=== PATIENT | male | born 1965 | race African-American/Black ===

== ENCOUNTER 2017-10-08 08:15 | Emergency (ER) | payer MEDICAID ==
[~2017-10-08] VITALS: Ht 162.6 cm; Wt 89.4 kg
[2017-10-08 08:17] VITALS: BP 151/81
== END 2017-10-08 09:09 | disposition home or self-care (01) ==
LOC: ER 08:50
DX: G51.0 Bell's palsy (principal)
CPT/HCPCS: 93005; 99283

== ENCOUNTER 2020-11-02 06:51 | Emergency (ER) | payer MEDICAID ==
[~2020-11-02] VITALS: Ht 167.6 cm; Wt 91.0 kg
[2020-11-02 08:34] LABS: BASOPHILS % 0.8 % (0.0-2.0); EOSINOPHILS % 4.5 % (0.0-5.0); HEMATOCRIT. 39.8 % (42.0-52.0); HEMOGLOBIN. 13.4 g/dL (14.0-18.0); LYMPHOCYTES % 16.4 % (20.0-50.0); MEAN CORPUSCULAR HEMOGLOBIN 29.6 pg (28.0-32.0); MEAN CORPUSCULAR VOLUME 87.8 fL (80.0-94.0); MEAN PLATELET VOLUME 8.3 fl (7.4-10.4); NEUTROPHILS % 66.3 % (40.0-76.0); PLATELET 198 x1000/uL (130-400); RED BLOOD CELL COUNT 4.54 mill/uL (4.7-6.1); RED CELL DISTRIBUTION WIDTH 12.8 % (11.6-14.6)
[2020-11-02 08:37] LABS: CHLORIDE 109 mEq/L (98-107)
[2020-11-02 09:07] LABS: BG BASE EXCESS 1.4 mmol/L (-2.0-2.0); BG CARBOXYHEMOGLOBIN 0.3 % (0.5-1.5); BG DEOXYHEMOGLOBIN 5.9 % (0.0-5.0); BG FRACTION INSPIRED OXYGEN 21; BG HCO3 ACT 26.3 mmol/L (22.0-26.0); BG METHEMOGLOBIN 0.3 % (0.0-1.5); BG OXYGEN SATURATION 94.1 % (92.0-98.5); BG OXYHEMOGLOBIN 93.5 % (94.0-97.0); BG PCO2 42.4 mmHg (35.0-45.0); BG PO2 70.6 mmHg (75.0-100.0); BG SAMPLE SITE RIGHT RADIAL; BG VENT MODE ROOM AIR
[2020-11-02 11:00] VITALS: BP 125/82
== END 2020-11-02 11:11 | disposition home or self-care (01) ==
LOC: ER 06:51
DX: R05 Cough (principal); R06.02 Shortness of breath; Z20.822 Contact with and (suspected) exposure to COVID-19; R07.89 Other chest pain
CPT/HCPCS: 36415; 36600; 71045; 80053; 82375; 82805; 85025; 93005; 99285; C9803; U0003; U0005

== ENCOUNTER 2021-12-31 19:44 | Emergency (ER) | payer MEDICAID, OTHER ==
[~2021-12-31] VITALS: Ht 172.7 cm; Wt 91.0 kg
[2021-12-31 23:53] VITALS: BP 163/91
[2022-01-01 00:15] LABS: BASOPHILS % 1.4 % (0.0-2.0); EOSINOPHILS % 5.9 % (0.0-5.0); HEMOGLOBIN. 13.5 g/dL (14.0-18.0); MEAN CORPUSCULAR HEMOGLOBIN 30.9 pg (28.0-32.0); MEAN CORPUSCULAR VOLUME 86.7 fL (80.0-94.0); MEAN PLATELET VOLUME 8.6 fl (7.4-10.4); NEUTROPHILS % 52.7 % (40.0-76.0); PLATELET 179 x1000/uL (130-400); RED BLOOD CELL COUNT 4.38 mill/uL (4.7-6.1); RED CELL DISTRIBUTION WIDTH 12.7 % (11.6-14.6)
[2022-01-01 00:21] LABS: CHLORIDE 105 mEq/L (98-107)
== END 2022-01-01 01:04 | disposition home or self-care (01) ==
LOC: ER 19:44
DX: R03.0 Elevated blood-pressure reading, without diagnosis of hypertension (principal); I44.4 Left anterior fascicular block; Z85.9 Personal history of malignant neoplasm, unspecified
CPT/HCPCS: 36415; 80048; 85025; 93005; 99284

== ENCOUNTER 2023-04-04 16:45 | Emergency (ER) | payer OTHER ==
[~2023-04-04] VITALS: Ht 167.6 cm; Wt 91.0 kg
[~2023-04-04 16:45] MED LIST: ACET-2708 MT; ERYT1OIN6 RIGHTEYE
[2023-04-04 16:58] VITALS: TEMP 98; O2SAT 99
[2023-04-04 18:00] VITALS: BP 127/82; PULSE 96; RESP 18
[2023-04-04] MEDS ORDERED: IBUPROFEN 600MG TABLET PO ONE (18:00)
[2023-04-04] MEDS ORDERED: IBUP-2029 MT (18:30)
== END 2023-04-04 18:53 | disposition home or self-care (01) ==
LOC: ER 16:45
DX: S50.02XA Contusion of left elbow, initial encounter (principal); Z98.890 Other specified postprocedural states; Z85.9 Personal history of malignant neoplasm, unspecified; X58.XXXA Exposure to other specified factors, initial encounter; Y93.89 Activity, other specified; Y92.89 Other specified places as the place of occurrence of the external cause; Y99.8 Other external cause status
CPT/HCPCS: 73080; 99283; A4565

== ENCOUNTER 2023-04-27 11:54 | Emergency (ER) | payer OTHER ==
[~2023-04-27] VITALS: Ht 162.6 cm; Wt 91.0 kg
[~2023-04-27 11:54] MED LIST changes: +IBUP-2029 MT
[2023-04-27 12:00] VITALS: TEMP 97.9; O2SAT 98
[2023-04-27 12:40] LABS: BASOPHILS % 0.8 % (0.0-2.0); EOSINOPHILS % 5.4 % (0.0-5.0); HEMATOCRIT. 40.3 % (42.0-52.0); HEMOGLOBIN. 13.5 g/dL (14.0-18.0); LYMPHOCYTES % 28.7 % (20.0-50.0); MEAN CORPUSCULAR HEMOGLOBIN 29.8 pg (28.0-32.0); MEAN CORPUSCULAR HGB CONC 33.6 g/dL (31.0-37.0); MEAN CORPUSCULAR VOLUME 88.8 fL (80.0-94.0); MEAN PLATELET VOLUME 8.9 fl (7.4-10.4); MONOCYTES % 9.3 % (2.0-8.0); NEUTROPHILS % 55.8 % (40.0-76.0); PLATELET 185 x1000/uL (130-400); RED BLOOD CELL COUNT 4.54 mill/uL (4.7-6.1); RED CELL DISTRIBUTION WIDTH 12.8 % (11.6-14.6); WHITE BLOOD COUNT 6.1 x1000/uL (4.5-11.0)
[2023-04-27 12:57] LABS: ALANINE AMINOTRANSFERASE 23 IU/L (10-49); ASPARTATE AMINOTRANSFERASE 17 IU/L (<34); BILIRUBIN TOTAL 0.5 mg/dL (0.1-1.0); CALCIUM 9.2 mg/dL (8.7-10.4); CARBON DIOXIDE 28 mEq/L (21-32); CHLORIDE 107 mEq/L (98-107); CREATININE 0.6 mg/dL (0.6-1.3); GLUCOSE 113 mg/dL (70-105); POTASSIUM 4.1 mEq/L (3.5-5.1); PROTEIN TOTAL 6.5 g/dL (6.0-8.3); SODIUM 140 mEq/L (136-145); UREA NITROGEN BLOOD 10 mg/dL (9-23)
[2023-04-27 12:58] LABS: TROPONIN I HIGH SENSITIVITY < 4 ng/L (3.0-53)
[2023-04-27 13:10] LABS: ALBUMIN 4.7 g/dL (3.2-4.8)
[2023-04-27 15:48] LABS: TROPONIN I HIGH SENSITIVITY < 4 ng/L (3.0-53)
[2023-04-27 17:15] VITALS: BP 124/63; PULSE 75; RESP 16
== END 2023-04-27 17:17 | disposition home or self-care (01) ==
LOC: ER 12:30
DX: R07.89 Other chest pain (principal); R22.0 Localized swelling, mass and lump, head; Z85.72 Personal history of non-Hodgkin lymphomas
CPT/HCPCS: 36415; 71045; 80053; 84484; 85025; 93005; 99285

== ENCOUNTER 2023-09-23 14:22 | Emergency (ER) | payer OTHER ==
[~2023-09-23] VITALS: Ht 160 cm; Wt 93.0 kg
[2023-09-23 14:50] VITALS: BP 125/61; PULSE 75; RESP 16; TEMP 98; O2SAT 98
[2023-09-23] MEDS: ACETAMINOPHEN 325MG TABLET PO ONE (16:37)
[2023-09-23] MEDS ORDERED: TUSSL MT (18:38)
[2023-09-23] MEDS ORDERED: CETI1TAB MT (18:38)
[2023-09-23] MEDS ORDERED: BENZ100C86 MT (18:39)
== END 2023-09-23 18:45 | disposition home or self-care (01) ==
LOC: ER 14:24
DX: B34.9 Viral infection, unspecified (principal); Z85.9 Personal history of malignant neoplasm, unspecified; Z79.899 Other long term (current) drug therapy; Z20.822 Contact with and (suspected) exposure to COVID-19
CPT/HCPCS: 71045; 87070; 87426; 87430; 87804; 99284

== ENCOUNTER 2023-11-24 08:10 | Emergency (ER) | payer OTHER ==
[~2023-11-24] VITALS: Ht 175.3 cm; Wt 85.0 kg
[~2023-11-24 08:10] MED LIST changes: +BENZ100C86 MT; +CETI1TAB MT; +TUSSL MT
[2023-11-24 08:15] VITALS: O2SAT 98
[2023-11-24 12:32] VITALS: BP 160/92; PULSE 80; RESP 18; TEMP 36.89184; O2SAT 98
== END 2023-11-24 12:32 | disposition home or self-care (01) ==
LOC: ER 08:17
DX: B34.9 Viral infection, unspecified (principal); J45.909 Unspecified asthma, uncomplicated; Z20.822 Contact with and (suspected) exposure to COVID-19; Z79.899 Other long term (current) drug therapy; Z98.890 Other specified postprocedural states
CPT/HCPCS: 71045; 87070; 87426; 87430; 99284

== ENCOUNTER 2023-12-07 12:18 | Emergency (ER) | payer OTHER ==
[~2023-12-07] VITALS: Ht 175.3 cm; Wt 86.1 kg
[2023-12-07 12:46] VITALS: BP 148/74; PULSE 89; RESP 16; TEMP 98.2; O2SAT 99
[2023-12-07] MEDS ORDERED: ERYT1OIN6 LEFTEYE (13:31)
== END 2023-12-07 14:19 | disposition home or self-care (01) ==
LOC: ER 12:31
DX: H01.004 Unspecified blepharitis left upper eyelid (principal); H00.014 Hordeolum externum left upper eyelid; Z79.899 Other long term (current) drug therapy
CPT/HCPCS: 99283